=== PATIENT | female | born 2000 | race Two or more races ===

== ENCOUNTER 2021-01-15 23:56 | Inpatient (IN) | payer MEDICAID, OTHER ==
[~2021-01-15] VITALS: Ht 152.4 cm; Wt 107.6 kg
[2021-01-16 00:59] LABS: COVID AG,FIA SOURCE NASOPHARYNGEAL
[2021-01-16 01:41] LABS: BASOPHILS % (AUTO) 0.1 % (0.0-2.0); EOSINOPHILS % (AUTO) 0.2 % (1.0-6.0); HEMATOCRIT 40.1 % (36-46); HEMOGLOBIN 13.4 g/dL (12.0-16.0); LYMPHOCYTES # (AUTO) 2.2 K/uL (1.0-4.8); LYMPHOCYTES % (AUTO) 17.8 % (22.0-44.0); MEAN CORPUSCULAR HEMOGLOBIN 29.7 pg (26.0-34.0); MEAN CORPUSCULAR HGB CONC 33.3 G/dL (31.0-37.0); MEAN CORPUSCULAR VOLUME 89 fL (80-100); MONOCYTES # (AUTO) 0.6 K/uL (0.1-1.0); MONOCYTES % (AUTO) 4.5 % (2.0-9.0); NEUTROPHILS # (AUTO) 9.7 K/uL (1.8-7.7); NEUTROPHILS % (AUTO) 77.4 % (40.0-70.0); PLATELET COUNT (AUTO) 361 K/uL (150-450); RED CELL DISTRIBUTION WIDTH 13.5 % (11.5-14.5)
[2021-01-16 01:55] LABS: ANION GAP 10 mmol/L (8-16); CALCIUM, TOTAL 8.9 mg/dL (8.8-10.5); CARBON DIOXIDE 27 mmol/L (22-29); CHLORIDE 102 mmol/L (98-107); CREATININE 0.68 mg/dL (0.60-1.30); GLOMERULAR FILTR. RATE CALC > 60 mL/min (>60); GLUCOSE,RANDOM 94 mg/dL (70-110); POTASSIUM 3.6 mmol/L (3.5-5.1); SODIUM SERUM 139 mmol/L (136-145); UREA NITROGEN, BLOOD 9 mg/dL (7-18)
[2021-01-16] MEDS ORDERED: QUEtiapine FUMARATE 100 MG TABLET PO PRN (02:00)
[2021-01-16 02:09] LABS: ALANINE AMINOTRANSFERASE 25 U/L (12-78); ALKALINE PHOSPHATASE 86 U/L (46-116); ASPARTATE AMINOTRANSFERASE 18 U/L (15-37); BILIRUBIN,TOTAL 0.4 mg/dL (0.1-1.0); HCG,QUANTITATIVE < 1 mIU/mL (0-6); TOTAL PROTEIN, SERUM 7.7 g/dL (6.4-8.2)
[2021-01-16] MEDS ORDERED: KETOROLAC TROMETHAMINE 30 MG/ML VIAL IM ONE (03:30)
[2021-01-16 04:58] LABS: ACETAMINOPHEN < 2 mcg/mL (10-30); SALICYLATE 1.5 mg/dL (2.8-20.0)
[2021-01-16 10:43] VITALS: BP 112/59
[2021-01-16] MEDS: BuPROPion HCL XL 150 MG ER TABLET PO SCH (11:50)
[2021-01-16 16:00] VITALS: BP 144/88
[2021-01-16] MEDS ORDERED: GuaiFENesin/D-METHORPHAN [SUGAR-FREE] 200-20MG/10 ML SYRUP UDCUP PO PRN (20:15)
[2021-01-16] MEDS ORDERED: CloNIDine HCL 0.1 MG TABLET PO PRN (20:15)
[2021-01-16] MEDS ORDERED: ALBUTEROL SULFATE HFA 90 MCG/PUFF 8 GM INHALER IH PRN (20:15)
[2021-01-16] MEDS ORDERED: PETROLATUM,WHITE 28 GM JELLY TP PRN (20:15)
[2021-01-16] MEDS ORDERED: MAG HYDROX/AL HYDROX/SIMETH ES 30 ML SUSPENSION UDCUP PO PRN (20:15)
[2021-01-16] MEDS ORDERED: DOCUSATE SODIUM 100 MG CAPSULE PO PRN (20:15)
[2021-01-16] MEDS ORDERED: MAGNESIUM HYDROXIDE SUSPENSION 30 ML UDCUP PO PRN (20:15)
[2021-01-16] MEDS ORDERED: NICOTINE 14 MG/24 HOUR PATCH TD PRN (20:15)
[2021-01-16] MEDS ORDERED: LOPERAMIDE HCL 2 MG CAPSULE PO PRN (20:15)
[2021-01-16] MEDS ORDERED: ONDANSETRON HCL 4 MG TABLET PO PRN (20:15)
[2021-01-16] MEDS: LORazepam 2 MG TABLET PO PRN (20:56)
[2021-01-17 05:36] VITALS: BP 116/73
[2021-01-17] MEDS: ACETAMINOPHEN 325 MG TABLET PO PRN ×2 (05:36→17:22)
[2021-01-17] MEDS: BuPROPion HCL XL 150 MG ER TABLET PO SCH (09:00)
[2021-01-17] MEDS ORDERED: LOPERAMIDE HCL 2 MG CAPSULE PO PRN (11:00)
[2021-01-17] MEDS ORDERED: NICOTINE 14 MG/24 HOUR PATCH TD PRN (11:00)
[2021-01-17] MEDS ORDERED: MAGNESIUM HYDROXIDE SUSPENSION 30 ML UDCUP PO PRN (11:00)
[2021-01-17] MEDS ORDERED: GuaiFENesin/D-METHORPHAN [SUGAR-FREE] 200-20MG/10 ML SYRUP UDCUP PO PRN (11:00)
[2021-01-17] MEDS ORDERED: DOCUSATE SODIUM 100 MG CAPSULE PO PRN (11:00)
[2021-01-17] MEDS ORDERED: CloNIDine HCL 0.1 MG TABLET PO PRN (11:00)
[2021-01-17] MEDS ORDERED: PETROLATUM,WHITE 28 GM JELLY TP PRN (11:00)
[2021-01-17] MEDS ORDERED: ACETAMINOPHEN 325 MG TABLET PO PRN (11:00)
[2021-01-17] MEDS ORDERED: MAG HYDROX/AL HYDROX/SIMETH ES 30 ML SUSPENSION UDCUP PO PRN (11:00)
[2021-01-17] MEDS ORDERED: ONDANSETRON HCL 4 MG TABLET PO PRN (11:00)
[2021-01-17] MEDS ORDERED: ALBUTEROL SULFATE HFA 90 MCG/PUFF 8 GM INHALER IH PRN (11:00)
[2021-01-17 13:23] VITALS: BP 143/88
[2021-01-17] MEDS: IBUPROFEN 400 MG TABLET PO PRN (13:23)
[2021-01-17 14:23] VITALS: BP 117/75
[2021-01-17 16:10] VITALS: BP 126/82
[2021-01-17] MEDS: ZOLPIDEM TARTRATE 10 MG TABLET PO PRN (20:45)
[2021-01-18] MEDS: BuPROPion HCL XL 150 MG ER TABLET PO SCH (08:04)
[2021-01-18 08:57] VITALS: BP 111/72
[2021-01-18] MEDS: IBUPROFEN 400 MG TABLET PO PRN (09:02)
[2021-01-18 16:36] VITALS: BP 118/62
[2021-01-18] MEDS: ZOLPIDEM TARTRATE 10 MG TABLET PO PRN (20:16)
[2021-01-19] MEDS: BuPROPion HCL XL 150 MG ER TABLET PO SCH (08:54)
[2021-01-19 09:18] VITALS: BP 110/55
[2021-01-19 16:19] VITALS: BP 113/63
[2021-01-19] MEDS: ZOLPIDEM TARTRATE 10 MG TABLET PO PRN (20:51)
[2021-01-20 00:02] VITALS: BP 114/64
[2021-01-20] MEDS: BuPROPion HCL XL 150 MG ER TABLET PO SCH (08:05)
[2021-01-20 09:35] VITALS: BP 108/77
[2021-01-20] MEDS ORDERED: TraMADol HCL 50 MG TABLET PO PRN (16:15)
[2021-01-20 16:42] VITALS: BP 100/70
[2021-01-20] MEDS: ZOLPIDEM TARTRATE 10 MG TABLET PO PRN (20:07)
[2021-01-20] MEDS: LORazepam 2 MG TABLET PO PRN ×2 (22:52)
[2021-01-21] MEDS: BuPROPion HCL XL 150 MG ER TABLET PO SCH (08:56)
[2021-01-21 16:33] VITALS: BP 116/78
[2021-01-21] MEDS: ZOLPIDEM TARTRATE 10 MG TABLET PO PRN (20:56)
[2021-01-21] MEDS: LORazepam 2 MG TABLET PO PRN (22:13)
[2021-01-22] MEDS: BuPROPion HCL XL 150 MG ER TABLET PO SCH (08:49)
[2021-01-22 10:59] VITALS: BP 130/79
[2021-01-22] MEDS: IBUPROFEN 400 MG TABLET PO PRN (10:59)
[2021-01-22 11:59] VITALS: BP 145/85
[2021-01-22 16:00] VITALS: BP 120/72
[2021-01-22] MEDS: ZOLPIDEM TARTRATE 10 MG TABLET PO PRN (20:33)
[2021-01-22] MEDS: LORazepam 2 MG TABLET PO PRN (21:40)
[2021-01-23 08:00] VITALS: BP 123/81
[2021-01-23] MEDS: BuPROPion HCL XL 150 MG ER TABLET PO SCH (09:00)
[2021-01-23] MEDS ORDERED: BUPR-93 PO (13:11)
== END 2021-01-23 15:20 | disposition home or self-care (01) | DRG 751 ==
LOC: EMS 23:58 → 3EI 01-16 02:00
DX: F33.2 Major depressive disorder, recurrent severe without psychotic features (principal); R45.851 Suicidal ideations; Z91.14 Patient's other noncompliance with medication regimen; S83.91XA Sprain of unspecified site of right knee, initial encounter; Z20.822 Contact with and (suspected) exposure to COVID-19; D72.829 Elevated white blood cell count, unspecified; Y92.89 Other specified places as the place of occurrence of the external cause; Y99.8 Other external cause status; Z79.899 Other long term (current) drug therapy; Z59.0 Homelessness
CPT/HCPCS: 80053; 84702; 85025; 87426; 97162; 99285; G0480; G0481; J1885